=== PATIENT | male | born 1965 | race Caucasian/White ===

== ENCOUNTER → 2022-11-23 | Outpatient (CLI) | payer BC, SELFPAY ==
[2022-11-23 12:51] LABS: Erythrocyte Sedimentation Rate 4 mm/hr (0-20)
[2022-11-23 12:58] LABS: Absolute Lymphocyte Count 1.38 X10^3/uL (0.83-4.51); Absolute Neutrophil Count 3.4 X10^3/uL (2.0-7.7); Basophil# 0.05 X10^3/uL; Basophil% 0.9 % (0-1); Eosinophil# 0.13 X10^3/uL; Eosinophils% 2.4 % (0-5); Hematocrit 45.2 % (40-54); Lymphocyte # 1.38 X10^3/ul (0.83-4.51); Mean Corp Hgb Conc 33.2 g/dL (32-36); Mean Corpuscular Hgb 27.3 pg (27.0-32.0); Mean Corpuscular Volume 82.2 fL (80-94); Mean Platelet Vol. 9.2 fl (6.2-12.0); Monocyte# 0.56 X10^3/uL; Monocyte% 10.1 % (0-10); NRBC Flagged by Analyzer 0 % (0-5); Neutrophil # 3.37 X10^3/uL (2.7-7.7); Neutrophil % 61.1 % (47-70); Platelet Count 170 K/mm3 (150-450); RBC Distribution Width CV 12.2 % (11.6-14.6); RBC Distribution Width SD 37.1 fl (35.1-43.9); White Blood Count 5.5 K/mm3 (4.4-11.0)
[2022-11-23 13:45] LABS: Hepatitis B Surface Antibody Non-Reactive; Hepatitis B Surface Antigen Non-Reactive (Nonreactive); Hepatitis C Antibody Non-Reactive (Nonreactive)
[2022-11-23 14:24] LABS: ALB/GLOB Ratio 0.9 RATIO (0.9-2.4); AST(SGOT) 13 U/L (15-37); Alanine Aminotransfer ALT/SGPT 34 U/L (16-61); Albumin, Serum 3.5 g/dL (3.2-5.0); Alkaline Phosphatase 69 U/L (45-117); Anion Gap 5 (5-15); BUN 20 mg/dL (7-18); BUN/Creat Ratio 19.8 RATIO (10-20); CRP < 2.90 mg/L (0.0-3.0); Calcium,Total 8.5 mg/dL (8.5-10.1); Chloride 107 mmol/L (98-107); Creatinine, Serum 1.01 mg/dL (0.70-1.30); EST Glomerular Filtration Rate 81 mL/min (>60); Est Glom Filt Rate - Afr Amer 98 mL/min (>60); Glucose 105 mg/dL (74-106); Potassium 4.4 mmol/L (3.5-5.1); Protein, Total 7.5 g/dL (6.4-8.2); Rheumatoid Factor < 10.0 IU/mL (<15); Sodium Level 137 mmol/L (136-145)
[2022-11-24 12:09] LABS: ANTINUCLEAR ANTIBODIES DIRECT Positive (Negative); CCP IgG Antibodies 5 units (0-19)
== END | disposition home or self-care (01) ==
PROVIDERS: PCP Internal Medicine; Referring Provider Internal Medicine Rheumatology; Visit Provider Internal Medicine Rheumatology
DX: M06.4 Inflammatory polyarthropathy (principal); I10 Essential (primary) hypertension; E78.5 Hyperlipidemia, unspecified; I25.10 Atherosclerotic heart disease of native coronary artery without angina pectoris; G47.33 Obstructive sleep apnea (adult) (pediatric); G47.26 Circadian rhythm sleep disorder, shift work type
CPT/HCPCS: 36415; 80053; 85025; 85652; 86038; 86140; 86200; 86431; 86706; 86803; 87340

== ENCOUNTER → 2022-12-06 | Outpatient (CLI) | payer BC, SELFPAY ==
[2022-12-06 15:51] LABS: EXAGEN MAILED SPECIMEN
[2022-12-06 17:36] LABS: Color, Urine Yellow (Yellow); Glucose, Dipstick Normal (Normal); Ketone-Dipstick Negative (Negative); Leukocyte Esterase-Dipstick Negative /ul (Negative); Nitrite-Dipstick Negative (Negative); Occult Blood-Urine Negative /ul (Negative); Protein-Dipstick Negative (Negative); Specific Gravity, Urine 1.015 (1.002-1.030); Urine Bilirubin Dipstick Negative (Negative); Urine Clarity Clear (Clear); Urine Urobilinogen 1 mg/dl (Normal); Urine pH 6.5 (5.0 - 8.0)
[2022-12-06 17:55] LABS: International Normalized Ratio 1.2; Partial Thromboplast Time 29.8 Seconds (24.1-36.2); Prothrombin Time (Protime)PT. 15.1 SECONDS (11.7-14.9)
[2022-12-06 17:56] LABS: Protein, Urine (Random) 8.8 mg/dL (<11.9); Protein:Creat Ratio 60 mg/g CRE (0-200)
[2022-12-09 19:07] LABS: Dilute Prothrombin Time (dPT) 41.2 sec (0.0-47.6); Dilute Russell Viper Venom 48.3 sec (0.0-47.0); Hexagonal Phase Phospholipid 4 sec (0-11); Interpretation Comment: (.); PTT-LA 41.3 sec (0.0-43.5); Thrombin Time 22.3 sec (0.0-23.0); dPT Confirm Ratio 1.02 Ratio (0.00-1.34)
== END | disposition home or self-care (01) ==
PROVIDERS: PCP Internal Medicine; Referring Provider Internal Medicine Rheumatology; Visit Provider Internal Medicine Rheumatology
DX: R76.8 Other specified abnormal immunological findings in serum (principal); M06.4 Inflammatory polyarthropathy; I10 Essential (primary) hypertension; E78.5 Hyperlipidemia, unspecified; I25.10 Atherosclerotic heart disease of native coronary artery without angina pectoris
CPT/HCPCS: 36415; 81002; 82570; 84156; 85598; 85610; 85730

== ENCOUNTER → 2023-02-24 | Outpatient (CLI) | payer BC, SELFPAY ==
--- OUTSIDE RECORDS SUMMARY | 2023-02-24 16:31 | XMS RPT_ITS | CCD ---
Author Name Unknown Address [address] [place] [address] Organization [facility] Care Team Providers Care Director Of Resource Development Name Role Phone LEWIS OLIVERA MD Primary Care Physician ( [phone] LEWIS OLIVERA MD Attending LEWIS Flor MD Primary Care LEWIS Flor MD Attending LEWIS Flor MD Primary Care Timmy Leary MD, KELIN Attending LEWIS Hsieh MD Primary Care LEWIS Flor MD Attending LEWIS Flor MD Primary Care UnavailLEWIS Jansen MD Attending LEWIS Flor MD Primary Care Unavailab Sapphire MENEZES, KELIN Attending LEWIS Hsieh MD Primary Care Unavailab Sapphire MENEZES, KELIN Admitting Wilman NICHOLE MD, RONNIE Consulting Wilman DENNIS MD, KELIN Consulting LEWIS Hsieh MD Attending LEWIS Flor MD Primary Care LEWSI Flor MD Attending LEWIS Flor MD Primary Care Unavailab granados Allergies Allergy Classification Reported Allergen(s) Allergy Type Date of Onset Reaction(s) Facility (5 sources) Nitroglycerin; Translations: [nitroglycerin] Drug Allergy [facility] Medications Current Medications Medication Drug Class(es) Dates Sig (Normalized) Sig (Original) Allergy (Loratadine) 10 mg oral tablet (4 sources) Start: 08-28-2019 Allergy (Loratadine) 10 mg oral tablet Dose : 10 mg = 1 tab(s), Oral, qDay, PRN as needed for allergy symptoms Start Date: 08/28/19 Status: Ordered amLODIPine 10 mg oral tablet (3 sources) Dihydropyridine Calcium Channel Billy Start: 04-08-2022 amLODIPine 10 mg oral tablet Dose : 10 mg = 1 tab(s), Oral, qDay, # 90 tab(s), 3 Refill(s), Pharmacy: [facility], 188, cm, 04/08/22 13:06:00 EST, Height, kg, 04/08/22 13:06:00 EST, Dosing Weight Start Date: 04/08/22 Status: Ordered apixaban 5 mg oral tablet (3 sources) Factor Xa Inhibitor Start: 04-28-2022 Eliquis 5 mg oral tablet Dose : 5 mg = 1 tab(s), Oral, BID, # 180 tab(s), 3 Refill(s), Pharmacy: [id number], 188, cm, 04/08/22 13:06:00 EST, Height, 110 Start Date: 04/28/22 Status: Ordered aspirin 81 mg delayed release oral tablet (2 sources) Platelet Aggregation Inhibitor, Nonsteroidal Anti-inflammatory Drug Start: 03-20-2015 aspirin 81 mg oral delayed release tablet Dose : 81 mg = 1 tab(s), Oral, qDay Start Date: 03/20/15 Status: Ordered Problems Active Problems Problem Classification Problem Date Documented Da te Episodic/Chronic Abdominal pain (2 sources) Abdominal pain 11-03-2021 Episodic Asthma (5 sources) Asthma 08-23-2019 Chronic Cardiac dysrhythmias (3 sources) Atrial fibrillation 05-10-2022 Chronic Chronic obstructive pulmonary disease and bronchiectasis (1 source) Bronchitis; Translations: [Bronchitis, not specified as acute or chronic] Onset: 2 Episodic Coronary atherosclerosis and other heart disease (6 sources) Coronary arteriosclerosis in chilkat artery; Translations: [Coronary atherosclerosis] 04-16-2019 Chronic Disorders of lipid metabolism (5 sources) Hyperlipidemia 08-23-2019 Chronic Esophageal disorders (5 sources) Gastroesophageal reflux disease 08-23-2019 Chronic Essential hypertension (5 sources) Hypertensive disorder 03-04-2020 Chronic Headache; including migraine (5 sources) Migraine 04-16-2019 Chronic Heart valve disorders (5 sources) Mitral valve prolapse 08-23-2019 Chronic Hyperplasia of prostate (8 sources) Large prostate ; Translations: [Benign prostatic hyperplasia] 03-20-2015 Chronic Nonspecific chest pain (5 sources) Chest pain 04-16-2019 Episodic Other circulatory disease (2 sources) H/O: atrial fibrillation 06-14-2022 Episodic Other gastrointestinal disorders (5 sources) Irritable bowel syndrome 08-23-2019 Chronic Other lower respiratory disease (4 sources) Dyspnea 03-20-2015 Episodic Other lower respiratory disease (2 sources) Dyspnea on exertion 06-14-2022 Episodic Other non-traumatic joint disorders (6 sources) Hip pain 08-23-2019 Episodic Residual codes; unclassified (5 sources) Obstructive sleep apnea syndrome 08-23-2019 Chronic Residual codes; unclassified (5 sources) Increased body mass index 08-23-2019 Episodic Residual codes; unclassified (1 source) Diffuse pain 09-12-2022 Episodic Unclassified (5 sources) Patient encounter status 08-23-2019 Past or Other Problems Problem Classification Problem Date Documented Da te Episodic/Chronic Other lower respiratory disease (2 sources) Dyspnea, unspecified; Translations: [Dyspnea, unspecified] Onset: 06-13-2022 Episodic Results Test Name Value Interpretation Reference Range Facil ity Vital Signs Date Time Vital Sign Value Performing Clinician Faci lity 06-03-2022 17:20-0400 Diastolic Blood Pressure Non-Invasive 74 1 KELIN DENNIS MD [address] [place] [address] 06-03-2022 17:20-0400 Heart rate 80 /min KELIN DENNIS MD [facility] 06-03-2022 17:20-0400 Respiratory rate 16 /min KELIN DENNIS MD [facility] 06-03-2022 17:20-0400 Systolic Blood Pressure Non-Invasive 128 1 KELIN DENNIS MD [facility] 06-03-2022 16:20-0400 Diastolic Blood Pressure Non-Invasive 76 1 KELIN DENNIS MD [facility] 06-03-2022 16:20-0400 Heart rate 86 /min KELIN DENNIS MD [facility] 06-03-2022 16:20-0400 Respiratory rate 16 /min KELIN DENNIS MD [facility] 06-03-2022 16:20-0400 Systolic Blood Pressure Non-Invasive 130 1 KELIN DENNIS MD [address] [place] [address] 06-03-2022 15:15-0400 Diastolic Blood Pressure Non-Invasive 79 1 KELIN DENNIS MD [address] [place] [address] 06-03-2022 15:15-0400 Heart rate 80 /min KELIN DENNIS MD [address] [place] [address] 06-03-2022 15:15-0400 Respiratory rate 16 /min KELIN DNENIS MD [address] [place] [address] 06-03-2022 15:15-0400 Systolic Blood Pressure Non-Invasive 134 1 KELIN DENNIS MD [address] [place] [address] 06-03-2022 10:00-0400 Body temperature 97.16 [degF] KELIN DENNIS MD [address] [place] [address] 06-03-2022 09:50-0400 Respiratory Rate - Anes 0 br/min KELIN DENNIS MD [address] [place] [address] 06-03-2022 09:45-0400 Respiratory Rate - Anes 16 br/min KELIN DENNIS MD [address] [place] [address] 06-03-2022 09:40-0400 Respiratory Rate - Anes 9 br/min KELIN DENNIS MD [address] [place] [address] 06-03-2022 09:30-0400 Body temperature 96.21 [degF] KELIN DENNIS MD [address] [place] [address] 06-03-2022 09:25-0400 Body temperature 96.33 [degF] KELIN DENNIS MD [address] [place] [address] 06-03-2022 09:20-0400 Body temperature 96.75 [degF] KELIN DENNIS MD [address] [place] [address] 06-03-2022 06:28-0400 Blood Pressure Location KELIN DENNIS MD [address] [place] [address] 06-03-2022 06:28-0400 Blood Pressure Method KELIN DENNIS MD [facility] 06-03-2022 06:28-0400 Body height 185.9 cm KELIN DENNIS MD [facility] 06-03-2022 06:28-0400 Body temperature 97.88 [degF] KELIN DENNIS MD [facility] 06-03-2022 [id number] Body weight 107.9 kg KELIN DENNIS MD [facility] 06-03-2022 06:280400 Body weight 31.22 kg/m2 KELIN DENNIS MD [facility] 06-03-2022 06:28-0400 Heart rate 69 /min KELIN DENNIS MD [facility] 03-07-2021 15:26-0500 Body temperature 97.52 [degF] ALIYAH MOY MD [facility] 03-07-2021 15:26-0500 Diastolic blood pressure 106 mm[Hg] ALIYAH MOY MD [facility] 03-07-2021 15:26-0500 Heart rate 93 /min ALIYAH MOY MD [facility] 03-07-2021 15:26-0500 Respiratory rate 18 /min ALIYAH MOY MD [facility] 03-07-2021 15:26-0500 Systolic blood pressure 193 mm[Hg] ALIYAH MOY MD [facility] Encounters Encounter Date Encounter Type Care Provider Facility Start: 11-04-2022 End: 11-05-2022 ambulatory KELIN DENNIS MD Facility:A Start: 11-04-2022 End: 11-04-2022 Patient encounter procedure KELIN DENNIS MD [facility] Start: 09-12-2022 End: 09-13-2022 ambulatory LEWIS OLIVERA MD Facility:A Start: 08-10-2022 End: 08-11-2022 ambulatory LEWIS OLIVERA MD Facility:A Start: 08-10-2022 End: 08-10-2022 Patient encounter procedure LEWIS OLIVERA MD [facility] Start: 07-05-2022 ambulatory LEWIS OLIVERA MD F acility:B Start: 06-13-2022 End: 06-18-2022 ambulatory LEWIS OLIVERA MD Facility:A Start: 06-03-2022 End: 06-03-2022 ambulatory KELIN DENNIS MD Facility:A Start: 06-03-2022 End: 06-03-2022 Observation KELIN DENNIS MD [facility] Start: 11-22-2021 End: 11-23-2021 ambulatory LEWIS OLIVERA MD Facility:B Start: 11-02-2021 End: 11-02-2021 Patient encounter procedure IRAJ MYRICK PA-C [facility] Start: 03-07-2021 End: 03-07-2021 Emergency department patient visit ALIYAH MOY MD [facility] Procedures Date Procedure Procedure Detail Performing Clinician Start: 11-08-2021 Cardiac catheterization KELIN DENNIS MD Immunizations Immunization Date Immunization Notes Care Provider Fa cili 12-28-2020 SARS-CoV-2 (COVID-19 ) Ad26 vaccine, recombinant IRAJ MYRICK PA-C [facility] 10-27-2014 influenza virus vaccine, unspecified formulation IRAJ MYRICK PA-C [facility] 11-18-2013 influenza virus vaccine, unspecified formulation IRAJ MYRICK PA-C [facility] 08-20-2013 tetanus toxoid, redu maria de jesus diphtheria toxoid, and acellular pertussis vaccine, adsorbed IRAJ MYRICK PA-C [facility] 03-01-1996 hepatitis B vaccine, adult dosage IRAJ MYRICK PA-C [facility] 08-24-1995 hepatitis B vaccine, adult dosage IRAJ MYRICK PA-C [facility] 07-20-1995 hepatitis B vaccine, adult dosage IRAJ MYRICK PA-C [facility] Payers Date Payer Category Payer Unknown [id number] 1965 Unknown [id number] 2.16.8 [id number] 1965 Unknown [id number] 2.16.8 [id number] 1965 Unknown [id number] 2.16.8 [id number] 1965 Unknown [id number] 2.16.8 [id number] 1965 Unknown [id number] 2.16.8 [id number] 1965 Unknown [id number] 2.16.8 [id number] 1965 Unknown [id number] 2.16.8 [id number] 1965 Unknown [id number] 2.16.8 [id number] Social History Date Type Detail Facility Start: 06-22-2018 Never smoked t obacco (finding) [facility] Sex Assigned At Male [facility] Functional Status Date Assessment Result [facility] 06-03-2022 Functional Status Awake, Repositions self, Resting [facility] 06-03-2022 Functional Status [facility] 06-03-2022 Functional Status Maintained [facility] Mental Status Date Assessment Result [facility] 06-03-2022 Mental Status Orientation Orie nted x 4, Follows simple commands [facility] 06-03-2022 Mental Status [facility] 06-03-2022 Mental Status [facility] Clinical Notes 03-07-2021 to 11-04-2022 Note Date & Type Note Facility [facility] 04-28-2023 Hospital Discharge instructions Patient Education 06/03/2022 18:12:25 3-- EP Study/Ablation (11/2017)(CUSTOM) ELECTROPHYSIOLOGY STUDY/ABLATION Discharge Instructions DIET INSTRUCTIONS Resume diet as prior to procedure ACTIVITIES Do not drive FOR 24 HOURS No heavy lifting GREATER THAN 10 POUNDS or pushing or straining FOR 4 DAYS BATHING/SHOWERING May tub bathe in 4 days Do not sit in hot tub, whirlpool, or swim for 4 days May shower today WOUND CARE You may go home with a Band-Aid over your procedure site. Keep this Band-Aid on for the next 24 hours and then remove it leaving the site open to air. Some degree of bruising and tenderness is normal around the procedure site. It will take a while for any bruising to completely resolve. Keep your site clean and dry. You need to report the following to your mica splitter: ?Any draining or oozing from the site ?Any swelling at the site ?Any increased pain or tenderness at the site ?Any numbness in your leg where the procedure was done ?Any sign of infection WATCH FOR SIGNS OF INFECTION: Elevated temperature above 100.5 Redness or swelling Increased pain Foul odor or drainage. If you have any questions, please call your doctor at the number listed on your follow up instructions. Follow all instructions given to you by your physician. Document Released: 01/23/2006 Document Revised: 01/09/2013 Document Reviewed: 01/24/2014 ExitCare Patient Information 2015 [employer]. This information is not intended to replace advicegiven to you by your health care provider. Make sure you discuss any questions you have with your health care provider. Follow Up Care 05/12/2022 11:48:39 With:BRITTANY KENDALL MD Address: [address] [facility] [address] [place] [address]- When:06/13/2022 14:00:00 Comments:KEEP THIS PREVIUOSLY SCHEDULED APPOINTMENT. With:KELIN DENNIS MD Address: [address] [facility] [address] [place] [address]- [phone] When:09/01/2022 13:00:00 [facility] 04-28-2023 Discharge summary Date of Service 06/03/22 Discharge Diagnosis Atrial fibrillation --- here for ablation Hospital Course HPI: 56 yr old atrial fibrillation (eliquis; BB), CAD s/p PCI, HTN, LAURENT, GERD, referred by Dr Javier for further AFib management. 6% AFib burden. Very symptomatic from episodes and meds (fatigue). Course: He underwent atrial fibrillation ablation. He did well. No issues afterwards. Groin sites were stable. He maintained sinus and was ready for discharge. Wean off metoprolol over the next month. Continue anticoagulation. Allergies nitroglycerin Procedures atrial fibrillation ablation Consults No qualifying data available. Imaging Results and Diagnostics none Objective Vitals and Measurements T: 36.2 C (Skin) TMIN: 35.25 C TMAX: 36.6 C (Temporal Artery) HR: 80(Monitored) RR: 16 BP: 128/74 SpO2: 95% HT: 185.9 cm WT: 107.9 kg BMI: 31.22 BMI: 31.22 Weight Dosing Weight: 107.9 kg (06/03/22) General Appearance: Alert and oriented x3, no apparent distress Head: Normocephalic, atraumatic EENT: EOMI, PERRLA, mucous membranes moist Neck: Supple, no thyromegaly. Cardiac: rrr, no mrg. Lungs: Clear to auscultation bilaterally, no wheezing, rales, rhonchi. Abdomen: Nondistended, nontender, bowel sounds present. Musculoskeletal: No gross deformities. Extremities: no significant lower extremity edema, no calf tenderness, pedal pulses are present bilaterally Neurological: No focal deficits Skin: Warm, dry, intact Psychiatric: Mood congruent, cooperative Pending Labs and Studies none Code Status Code Status - Ordered -- 06/03/22 15:01:00 EDT, Full Code, Constant Order Admission Date 06/03/22 Discharge Date 06/03/22 Medications Unchanged amLODIPine (amLODIPine 10 mg oral tablet)1 tab(s) by mouth once a day. Refills: 3. apixaban (Eliquis 5 mg oral tablet)1 tab(s) by mouth two (2) times a day. Refills: 3. clopidogrel (Plavix 75 mg oral tablet)1 tab(s) by mouth once a day. Refills: 0. diphenhydrAMINE (Benadryl 25 mg oral capsule)1 cap by mouth once a day as needed for allergy symptoms. loratadine (Allergy (Loratadine) 10 mg oral tablet)1 tab(s) by mouth once a day as needed as neededfor allergy symptoms. Misc Medication multivitamin (Multiple Vitamins oral capsule)1 cap by mouth once a day. omega-3 polyunsaturated fatty acids (Fish Oil 1000 mg oral capsule)2 cap by mouth once a day. pantoprazole (pantoprazole 20 mg oral enteric coated tablet)1 tab(s) Oral daily, prn; as needed Heartburn. Refills: 3. rosuvastatin (rosuvastatin 20 mg oral capsule)1 cap by mouth once a day. Refills: 3. tamsulosin (tamsulosin 0.4 mg oral capsule)1 cap by mouth once a day (in the evening). Refills: 3. Discontinued metoprolol (Toprol-XL 100 mg oral tablet, extended release)1 tab(s) by mouth once a day. Refills: 3. WEAN OFF METOPROLOL. In TWO weeks, cut the dose in half, then stop it 1 week later. Follow Up Follow Up with KELIN DENNIS MD When 09/01/2022 01:00 PM EDT Where: [address] [facility] [address] [place] [address]- [phone] Follow Up with BRITTANY KENDALL MD When 06/13/2022 02:00 PM EDT Why: KEEP THIS PREVIUOSLY SCHEDULED APPOINTMENT. Where: [address] [facility] [address] [place] [address]- Follow Up Labs/Studies Discharge Labs No Follow-up Labs Discharge Studies No Follow-up Studies Discharge Diet No qualifying data available. Discharge Activity Discharge Activity - Ordered -- no heavy lifting for 4 days (nothing 25 lbs), 06/03/22 10:25:00 EDT Condition on Discharge stable Readmission Risk/Palliative Score No qualifying data available. Discharge Disposition home Information Provided To patient Digitally Signed by KELIN DENNIS MD on 06/03/2022 06:48 PM [id number] Summary of episode note Discharge Instructions Thank you for allowing [facility] to assist you with your healthcare needs. The following is importantdischarge information regarding your hospital visit. Your Care Team LEWIS OLIVERA MD What to do next Scheduled Follow-Up Appointments Appointment Type When With Where Contact InformationCV OV 06/13/2022 02:00 PM EDT [facility] OV Follow Up 08/15/2022 02:30 PM EDT LEWIS OLIVERA MD [facility] CV OV 09/01/2022 01:00 PM EDT [facility] Follow Up Appointments Follow Up with KELIN DENNIS MD When 09/01/2022 01:00 PM EDT Where: [address] [facility] [address] [place] [address]- [phone] Follow Up with BRITTANY KENDALL MD When 06/13/2022 02:00 PM EDT Why: KEEP THIS PREVIUOSLY SCHEDULED APPOINTMENT. Where: [address] [facility] [address] [place] [address]- The Following Activity and Diet Have Been Ordered for You Discharge Activity - Ordered -- no heavy lifting for 4 days (nothing 25 lbs), 06/03/22 10:25:00 EDT No qualifying data available. The Following Equipment Has Been Ordered for You Discharge Home Equipment Discharge Communication Order - Ordered -- Please take metoprolol for 2 more weeks, then reduce dose in half for 1 more week, then stop., 06/03/22 18:43:04 EDT Medications Please ask your primary doctor or pharmacist before taking any other medication not listed, including over the counter drugs, herbal medications, vitamins and or supplements as they may interact withyour home medications. What How Much When Instructions Last Dose Unchanged amLODIPine (amLODIPine 10 mg oral tablet) 1 tab(s) by mouth Once a day Unchanged apixaban (Eliquis 5 mg oral tablet) 1 tab(s) by mouth Two (2) times a day Unchanged clopidogrel (Plavix 75 mg oral tablet) 1 tab(s) by mouth Once a day Unchanged diphenhydrAMINE (Benadryl 25 mg oral capsule) 1 cap by mouth Once a day as needed for for allergy symptoms Unchanged loratadine (Allergy (Loratadine) 10 mg oral tablet) 1 tab(s) by mouth Once a day as needed for as needed for allergy symptoms Unchanged Misc Medication Unchanged multivitamin (Multiple Vitamins oral capsule) 1 cap by mouth Once a day Unchanged omega-3 polyunsaturated fatty acids (Fish Oil 1000 mg oral capsule) 2 cap by mouth Once a day Unchanged pantoprazole (pantoprazole 20 mg oral enteric coated tablet) See instructions 1 tab(s) Oral daily, prn Unchanged rosuvastatin (rosuvastatin 20 mg oral capsule) 1 cap by mouth Once a day Unchanged tamsulosin (tamsulosin 0.4 mg oral capsule) 1 cap by mouth Once a day (in the evening) What How Much When Comments Stop Taking metoprolol (Toprol-XL 100 mg oral tablet, extended release) 1 tab(s) by mouth Once a day Please take this list to your next doctor s visit. Bring all medications you take, including over the counter medications, herbals and other supplements with you to your doctor s visit. Patients and families are reminded to discard old lists and to update any records with all medication providers or retail pharmacies. Education Materials ELECTROPHYSIOLOGY STUDY/ABLATION Discharge Instructions DIET INSTRUCTIONS Resume diet as prior to procedure ACTIVITIES Do not drive FOR 24 HOURS No heavy lifting GREATER THAN 10 POUNDS or pushing or straining FOR 4 DAYS BATHING/SHOWERING May tub bathe in 4 days Do not sit in hot tub, whirlpool, or swim for 4 days May shower today WOUND CARE You may go home with a Band-Aid over your procedure site. Keep this Band-Aid on for the next 24 hours and then remove it leaving the site open to air. Some degree of bruising and tenderness is normal around the procedure site. It will take a while for any bruising to completely resolve. Keep your site clean and dry. You need to report the following to your mica splitter: ? Any draining or oozing from the site ? Any swelling at the site ? Any increased pain or tenderness at the site ? Any numbness in your leg where the procedure was done ? Any sign of infection WATCH FOR SIGNS OF INFECTION: Elevated temperature above 100.5 Redness or swelling Increased pain Foul odor or drainage. If you have any questions, please call your doctor at the number listed on your follow up instructions. Follow all instructions given to you by your physician. Document Released: 01/23/2006 Document Revised: 01/09/2013 Document Reviewed: 01/24/2014 ExitCare Patient Information 2015 [employer]. This information is not intended to replace advicegiven to you by your health care provider. Make sure you discuss any questions you have with your health care provider. Additional Information VACCINATE! IT SAVES LIVES! Members of the community who have not yet received the COVID-19 vaccine and would like to receive it can visit one of [facility] vaccine clinics. There are many vaccine clinic locations within the [facility]. For locations and available times, please visit [email or web address].[place].gov/. It is important to note that some COVID mobile vaccine clinics are held outdoors and may be canceled in rainy or stormy conditions. To learn more about pediatric vaccinations (ages 5-11), we invite you to visit the [facility] webpage. [email or web address]/[email or web address] learn more about the COVID-19 vaccine, we invite you to visit the CDC website for a list of frequently asked questions. https://www.cdc.gov/coronavirus/2019-ncov/vaccines/faq.html [facility] Patient Portal Access Instructions: Stay connected with your healthcare team and access your personal medical information anytime with the [facility] Patient Portal.If you would like a full copy of your medical records, please contact the [facility] Medical Records Department, Monday through Monday between 8a.m. and 4:30p.m. Please follow the directions below to access the portal: 1.Access the email account you provided upon registration to the [facility].2.Look for an invitation email from [facility].3.Open the email and access the invitation link: Accept Invitation to [facility].Fill in the required alfredo to create your account. Sign into [email or web address] with your username and password that you created in the above steps to stay up to date. You can then view a summary of results, a summary of your visits, and the ability to download your summaries to your computer or send the information securely to a physician. Remember that your healthcare information is confidential, so carefully consider who you will allow to register on the [facility] Patient Portal for access to your information. You can also access the [facility] Patient Portal on the [employer] jocelyne. Simply click on Health Records under [facility] and then click on the [facility] logo. HOW TO SAFELY DISPOSE OF PRESCRIPTION MEDICATIONS Please use one of the following methods to safely dispose of your unused medications. 1.Use a drug disposal kit: the drug disposal pouch allows you to safely discard your old and unuseddrugs. Ask your nurse to give you one when you are discharged.2.Visit a local take-back location: Many local pharmacies and police departments have programs that collect old and unwanted prescriptiondrugs. Call your local pharmacy or go to http://bit.FPSI/2C4Mz2o to find one close to you.3.Make use of household items: Use cat litter or old coffee grounds to dispose medications if other options arenot available. Mix your drugs with these household products, seal them in an airtight container andthrow it into the garbage. Call [facility]: [phone] to be sure your drugs can be disposed of in this way. Some medicines may require a different approach.4.Never flush your medications down the toilet. IF YOU HAVE BEEN PRESCRIBED AN OPIOID FOR PAIN If you have been prescribed an opioid (such as hydrocodone, oxycodone or morphine), it is critical to understand the possible side effects and risks of opioid pain medications. Even when taken as directed, opioids can have several side effects including: Tolerance, meaning you might need to take more of a medication for the same pain relief. Nausea, vomiting and/or constipation. Sleepiness, dizziness, dry mouth, confusion, depression or itching. Physical dependence, meaning you have withdrawal symptoms when a medication is stopped, can develop within a few days. KNOW YOUR RESPONSIBILITIES It is important to know exactly how much and how often to take the opioid pain medications you are prescribed. Never take opioids in higher amounts or more often than prescribed. Do not combine opioids with alcohol or other drugs that cause drowsiness, such as benzodiazepines, also known as benzos, including diazepam and alprazolam, muscle relaxants or sleep aids. Never sell or share prescription opioids. This is illegal. Store opioids in a secure place and out of reach of others (including children, family, friends and visitors). The last page of this document has been signed and retained as a CHART COPY. Signatures Patient Education Materials 3-- EP Study/Ablation (11/2017)(CUSTOM) Medication Leaflets My discharge plan and instructions have been reviewed and explained to me and I,CASIMIRO MILLS understand my current condition and have read and understand these discharge instructions. I have received a written copy of the plan/instructions. If I have questions, I am aware that I should contact my doctor. 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 History of Present Illness 56yoM with PMH atrial fibrillation (eliquis; BB both taken yesterday), CAD s/p PCI (in nov 2021, took plavix yesterday per instructions), HTN, LAURENT, GERD presenting for ablation. Denies current CP, SOB, fever, recent cough, cold or congestion; >4 METS, no GERD sx. He is symptomatic when episodes of afib occur. Health Status Allergies: Nonallergic Reactions (Selected) Severity Not Documented Nitroglycerin- No reactions were documented., Allergies (1) ActiveReaction nitroglycerinNone Documented Current medications: (Selected) Inpatient Medications Ordered NS 1,000 mL: 20 mL/hr, Intravenous lidocaine 1% preservative-free injectable solution: 2.5 mg, 0.25 mL, Intradermal, prep pharm Prescriptions Prescribed Eliquis 5 mg oral tablet: 5 mg, 1 tab(s), Oral, BID, 180 tab(s), 3 Refill(s) Plavix 75 mg oral tablet: 75 mg, 1 tab(s), Oral, qDay, 14 tab(s), 0 Refill(s) Toprol-XL 100 mg oral tablet, extended release: 100 mg, 1 tab(s), Oral, qDay, 90 tab(s), 3 Refill(s) amLODIPine 10 mg oral tablet: 10 mg, 1 tab(s), Oral, qDay, 90 tab(s), 3 Refill(s) pantoprazole 20 mg oral enteric coated tablet: See Instructions, 1 tab(s) Oral daily, prn, PRN: Heartburn, 90 tab(s), 3 Refill(s) rosuvastatin 20 mg oral capsule: 20 mg, 1 cap(s), Oral, qDay, 90 cap(s), 3 Refill(s) tamsulosin 0.4 mg oral capsule: 0.4 mg, 1 cap(s), Oral, qPM, 90 cap(s), 3 Refill(s) Documented Medications Documented Allergy (Loratadine) 10 mg oral tablet: 10 mg, 1 tab(s), Oral, qDay, PRN: as needed for allergy symptoms Benadryl 25 mg oral capsule: 25 mg, 1 cap(s), Oral, qDay, PRN: for allergy symptoms Fish Oil 1000 mg oral capsule: 2,000 mg, 2 cap(s), Oral, qDay Misc Medication: 0 Refill(s) Multiple Vitamins oral capsule: 1 cap(s), Oral, qDay, Medications (2) Active Scheduled: (1) lidocaine 1% (MPF) 2 mL vial pf 2.5 mg 0.25 mL, Intradermal, prep pharm Continuous: (1) NS (0.9% nacl) 1,000 mL 1,000 mL, Intravenous, 20 mL/hr PRN: (0) Problem list: Medical Abdominal pain / SNOMED CT 17416778 / Confirmed Asthma / SNOMED CT 310814646 / Confirmed Atrial fibrillation / SNOMED CT 48437248 / Confirmed BPH (benign prostatic hyperplasia) / SNOMED CT 589062965 / Confirmed CHEST PAIN / SNOMED CT 50001052 / Confirmed Chest Pain-unclear etiology / Complaint of Atherosclerotic heart disease / SNOMED CT 2353065770 / Confirmed Shortness of breath / SNOMED CT 781175559 / Confirmed Enlarged prostate / SNOMED CT 996041954 / Confirmed Gastroesophageal reflux disease / SNOMED CT 554231707 / Confirmed Hip pain / SNOMED CT 68628758 / Confirmed HISTORY OF RIGHT CORONARY ARTERY STENT PLACEMENT / SNOMED CT 3963388549 / Confirmed Hyperlipidemia / SNOMED CT 40150016 / Confirmed Hypertension / SNOMED CT 2695294243 / Confirmed Increased BMI / SNOMED CT 69311154 / Confirmed Irritable bowel syndrome / SNOMED CT 46980556 / Confirmed MIGRAINE / SNOMED CT 95186880 / Confirmed Mitral valve prolapse / SNOMED CT 4325823437 / Confirmed OBSTRUCTIVE SLEEP APNEA / SNOMED CT 067232305 / Confirmed Wellness examination / SNOMED CT 937891271 / Confirmed, Active Problems (24) Abdominal pain Asthma Atherosclerotic heart disease Atrial fibrillation BPH (benign prostatic hyperplasia) CAD (coronary artery disease) cardiac catherization CHEST PAIN Chest pain Chest Pain-unclear etiology Enlarged prostate Gastroesophageal reflux disease Hip pain HISTORY OF RIGHT CORONARY ARTERY STENT PLACEMENT Hypercholesterolemia Hyperlipidemia Hypertension Increased BMI Irritable bowel syndrome MIGRAINE Mitral valve prolapse OBSTRUCTIVE SLEEP APNEA Shortness of breath Wellness examination Histories Past Medical History: Active Enlarged prostate (639043201) Shortness of breath (198879892) Resolved Microcytosis (200714551): Resolved. Paroxysmal A-fib (975045852): Resolved. Procedure history: Cardiac catheterization ([id number]) on 11/08/2021 at 55 Years. Comments: 12/10/2021 9:54 Wendy Sorto RN 11/08/21 SUMMARY: 1. 1st lesion: Stent placement was performed. A 2.5 mm (D) x 28 mm (L), Synergy XD stent was used. The stent was advanced across the lesion and deployed with a single inflation and a maximum pressure of 14 osmar. 2. 2nd lesion: Stent placement was performed. A 3.5 mm (D) x 20 mm (L), Synergy XD stent was used. The stent was advanced across the lesion and deployed with a single inflation and a maximum pressure of 12 osmar. 3. Left ventricle: Systolic function is normal. The estimated ejection fraction is 55-60%. 4. LAD: Mid-vessel lesion: The diagnostic study demonstrated a discrete, 70% stenosis. The distal vessel supplies a large vascular territory. The lesion is a likely culprit for the patient's clinical presentation. The lesion presents an ACC/AHA type C high risk lesion for intervention. Stent placement was performed, with balloon angioplasty, resulting in an excellent angiographic appearance (see 2nd lesion). Following intervention, there is a residual stenosis with FERCHO grade 3 flow (brisk flow). 5. 2nd diagonal: Ostial lesion: The diagnostic study demonstrated a discrete, 80% stenosis. The distal vessel supplies a moderate-sized vascular territory. The lesion is a likely culprit for the patient's clinical presentation. The lesion presents an ACC/AHA type C high risk lesion for intervention. Stent placement was performed, with balloon angioplasty, resulting in an excellent angiographic appearance (see 1st lesion). Following intervention, there is a residual stenosis with FERCHO grade 3 flow (brisk flow). 6. Left circumflex: Mid-vessel lesion: There is a 50% stenosis. IMPRESSIONS: Successful bifurcation PCI of LAD and Diagonal with HARLAN and DK crush technique. RECOMMENDATIONS: Continue on ASA and Brillinta with high intensity statin therapy and beta blockersas tolerated. Continue with aggressive risk factor modification and antianginal medications as needed. 03/04/2020 8:54 Tori Jiang LPN SUMMARY: Left ventricle: Systolic function is normal. The estimated ejection fraction is 55 60%. Wall motion is normal; there are no regional wall motion abnormalities. IMPRESSIONS: Mild coronary artery disease as described. Patent prior stent in RCA Normal LV systolic function with LVEF 55 60% Stress testing using pharmacologic-induced stress ([id number]) on 08/28/2019 at 53 Years. Comments: 03/04/2020 8:53 Tori Jiang LPN IMPRESSION: 1. No evidence for Lexiscan-induced reversible myocardial ischemia or infarction. 2. Normal LEFT ventricular wall motion and LEFT ventricular ejection fraction calculated to be 62%. 3. On comparison to prior study in 2012 no new changes . PTCA - Percutaneous transluminal coronary angioplasty ([id number]) on 10/27/2011 at 45 Years. Comments: 03/04/2020 9:05 Tori Jiang LPN (10/27/11) 3.5 X 16 Promus Element stent to the RCA Pilonidal cyst ([id number]). Social History Social & Psychosocial Habits Alcohol 03/29/2017Risk Assessment: Denies Alcohol Use 08/21/2018 Use: Never Employment/School 05/12/2022 Status: Employed Substance Abuse 03/29/2017Risk Assessment: Denies Substance Abuse 04/19/2019 Use: Never Tobacco 06/22/2018 Tobacco Use: Never (less than 100 in l 2Risk Assessment: No Risk Home/Environment 05/12/2022 Marital Status of Patient if Patient Independent Adult: Nutrition/Health 05/12/2022 Caffeine intake amount: none . Physical Examination Vital Signs(last 24 hrs) Last Charted Resp Rate 20 br/min (JUN 03 06:28) SBPH 151mmHg (JUN 03 06:28) DBPH 91mmHg (JUN 03 06:28) BMI31.22 (JUN 03 06:) Measurements from flowsheet : Measurements 06/03/2022 6:28 EDT Height 185.9 cm Height in inches 73.2 inch(es) Admission Weight 107.9 kg Weight Lbs 237.4 lb Weight Method Actual [place] Body Weight 80.33 kg Body Mass Index 31.22 kg/m2 Body Mass Index 31.22 kg/m2 Admission Body Mass Index 31.22 m2 General: Alert and oriented, No acute distress. Airway: Normal mouth, No damage to dentition, Normal neck range of motion. Mallampati classification: III (soft palate, base of uvula visible). Dentition Evaluation: Intact. Neck: Supple. Respiratory: Lungs are clear to auscultation, Respirations are non-labored. Cardiovascular: Normal rate, Regular rhythm. Heart Sounds: Normal. Neurologic: Alert, Oriented. Review / Management Results review: No qualifying data available . Documentation reviewed: Current records. Assessment and Plan [place] Society of Anesthesiologists (ASA) physical status classification: Class III. Anesthetic Preoperative Plan Premedication: intravenous. Anesthetic technique: General. Induction: intravenously. Maintenance airway: Oral endotracheal tube. Special Monitoring: Arterial line. Postoperative pain management: Per surgeon. Risks discussed: nausea, vomiting, headache, sore throat, dental injury, hypotension, allergic reaction, serious complications. Informed consent: signed by patient. Notes: Late entry due to participation in pt care. Pt seen and evaluated prior to performing anesthetic. Discussed and agree upon plan. . Digitally Signed by RONNIE NICHOLE MD on 06/03/2022 08:26 AM [id number] Discharge [facility] Patient Education 03/07/2021 15:31:20 Bronchitis, Antibiotic Treatment (Adult) Bronchitis, Antibiotic Treatment (Adult) Bronchitis is an infection of the air passages (bronchial tubes) in your lungs. It often occurs when you have a cold. This illness is contagious during the first few days and is spread through the air by coughing and sneezing, or by direct contact (touching the sick person and then touching your own eyes, nose, or mouth). Symptoms of bronchitis include cough with mucus (phlegm) and low-grade fever. Bronchitis usually lasts 7 to 14 days. Mild cases can be treated with simple home remedies. More severe infection is treated with an antibiotic. Home care Follow these guidelines when caring for yourself at home: If your symptoms are severe, rest at home for the first 2 to 3 days. When you go back to your usualactivities, don't let yourself get too tired. Don't smoke. Also stay away from secondhand smoke. You may use nuui-keb-yzfjedc medicines to control fever or pain, unless another medicine was prescribed. If you have chronic liver or kidney disease or have ever had a stomach ulcer or gastrointestinal bleeding, talk with your healthcare provider before using these medicines. Also talk to your provider if you are taking medicine to prevent blood clots. Aspirin should never be given to anyone younger than 18 who is ill with a viral infection or fever. It may cause severe liver or brain damage. Your appetite may be low, so a light diet is fine. Stay well hydrated by drinking 6 to 8 glasses offluids per day. This includes water, soft drinks, sports drinks, juices, tea, or soup. Extra fluidswill help loosen mucus in your nose and lungs. Gocl-ufk-nhtrhmr cough, cold, and sore-throat medicines will not shorten the length of the illness,but they may be helpful to reduce your symptoms. Don't use decongestants if you have high blood pressure. Finish all antibiotic medicine. Do this even if you are feeling better after only a few days. Follow-up care Follow up with your healthcare provider, or as advised. If you had an X-ray or ECG (electrocardiogram), a specialist will review it. You will be told of any new test results that may affect your care. If you are age 65 or older, if you smoke, or if you have a chronic lung disease or condition that affects your immune system, ask your healthcare provider about getting a pneumococcal vaccine and a yearly flu shot (influenza vaccine). When to seek medical advice Call your healthcare provider right away if any of these occur: Fever of 100.4 F (38 C) or higher, or as directed by your healthcare provider Coughing up more sputum Weakness, drowsiness, headache, facial pain, ear pain, or a stiff neck Call 911 Call 911 if any of these occur. Coughing up blood Weakness, drowsiness, headache, or stiff neck that get worse Trouble breathing, wheezing, or pain with breathing 4522-4553 [employer]. [address] [place] [address], [place] [address]. All rights reserved. This information is not intended as a substitute for professional medical care. Always follow yourhealthcare professional's instructions. Follow Up Care 03/07/2021 15:22:40 With:LEWIS OLIVERA MD, Internal Medicine, [facility] Inpatient Coverage, Internal Medicine, [facility] Inpatient Coverage Address: [address] [place] [phone] When:5 to 7 days [facility] Evaluation + Plan note Future Appointments Appointment Date:10/21/2021 02:30:00 PM Scheduled Provider:LEWIS OLIVERA MD Location:[facility] Appointment Type:PC OV [facility] Evaluation + Plan note Future Appointments Appointment Date:11/08/2021 09:30:00 AM Scheduled Provider: Location:Heart Lab Appointment Type:CV Procedure - Heart Lab/Hybrid OR Appointment Date:12/13/2021 01:30:00 PM Scheduled Provider:IRAJ MYRICK PA-C Location:[facility] Appointment Type:CV OV Appointment Date:01/18/2022 03:30:00 PM Scheduled Provider:LEWIS OLIVERA MD Location:[facility] Appointment Type:PC OV Follow Up [facility] Evaluation + Plan note Future Appointments Appointment Date:06/13/2022 02:00:00 PM Scheduled Provider: Location:[facility] Appointment Type:CV OV Appointment Date:08/15/2022 02:30:00 PM Scheduled Provider:LEWIS OLIVERA MD Location:[facility] Appointment Type:PC OV Follow Up Appointment Date:09/01/2022 01:00:00 PM Scheduled Provider: Location:[facility] Appointment Type:CV OV Future Scheduled Tests Laboratory* Basic Metabolic Panel 08/15/22 * Hepatic Function Panel 11/03/21 * Complete Blood Count 08/15/22 * Lipid Profile 08/15/22 * Lipid Profile 04/17/22 * Complete Metabolic Panel 04/17/22 [facility] Evaluation + Plan note Future Appointments Appointment Date:09/01/2022 01:00:00 PM Scheduled Provider: Location:[facility] Appointment Type:CV OV Appointment Date:09/12/2022 02:00:00 PM Scheduled Provider:LEWIS OLIVERA MD Location:[facility] Appointment Type:PC OV Follow Up Future Scheduled Tests Laboratory* Basic Metabolic Panel 08/15/22 * Hepatic Function Panel 11/03/21 * Complete Blood Count 08/15/22 * Lipid Profile 08/15/22 * Lipid Profile 04/17/22 * Complete Metabolic Panel 04/17/22 [facility] Evaluation + Plan note Future Appointments Appointment Date:03/20/2023 02:30:00 PM Scheduled Provider:LEWIS OLIVERA MD Location:[facility] Appointment Type:PC OV Follow Up Appointment Date:08/24/2023 01:15:00 PM Scheduled Provider: [facility] Type[facility] OV Future Scheduled Tests Laboratory* Basic Metabolic Panel 08/15/22 * Complete Blood Count 08/15/22 * Lipid Profile 08/15/22 * Lipid Profile 04/17/22 * Complete Metabolic Panel 04/17/22 [facility] Hospital course Narrative No data available for this section [facility] Hospital Discharge instructions No data available for this section [facility] Note* KELIN DENNIS MD: SIGN, VERIFY Event Display: Ablation RF-CARTO - CV [facility] Progress note No data available for this section [facility] Summary Purpose Family History No Family History Records Found Advance Directives No Advanced Directives Records Found Additional Source Comments Care Team (unrecognized sect ion and content) Care Team Personnel Name: LEWIS OLIVERA MD Position: P4 Physician - Primary Care Med Service: Active Provider Member Role: Primary Care Physician Address: Address: [address] [place] [address] Name: BRITTANY KENDALL MD Position: P4 Physician - Cardiology Med Service: Active Provider Member Role: Direct Chill Caster Address: Address: [address] [facility] [address] [facility] [place] [address]- Care Team Related Persons Name: DEVIKA MILLS Address: Home [address], [place] [id number] Name: JOSÉ MILLS Address: [facility] Address: Home [address], [place] [id number] Name: ABDULLAHI MILLS Address: Home [address], [place] [id number] Name: SHRUTHI MILLS Address: Home [address], [place] [phone] Patient Care team informatio n (unrecognized section and content) Care Team Personnel Name: LEWIS OLIVERA MD Position: P4 Physician - Primary Care Member Role: Primary Care Physician Address: Address: [address] [place] [address] Name: BRITTANY KENDALL MD Position: P4 Physician - Cardiology Member Role: Direct Chill Caster Address: Address: [address] [place] [address] [address]- Care Team Related Persons Name: DEVIKA MILLS Address: Home [address], [place] [phone] [place] Address: Temporary [address], [place] [id number] Name: JOSÉ MILLS Address: [facility] Address: Home [address], [place] [phone] Name: ABDULLAHI MILLS Address: Home [address], [place] [id number] [place] Address: Temporary [address], [place] [phone] Name: SHRUTHI MILLS Address: Home [address], [place] [phone] Care Team Personnel Name: LEWIS OLIVERA MD Position: P4 Physician - Primary Care Member Role: Primary Care Physician Address: Address: [address] [place], [place] [address] Name: BRITTANY KENDALL MD Position: P4 Physician - Cardiology Member Role: Direct Chill Caster Address: Address: [address] [place] [address] [address]- Care Team Related Persons Name: DEVIKA MILLS Address: Home [address], [place] [phone] [place] Address: Temporary [address], [place] [id number] Name: JOSÉ MILLS Address: [facility] Address: Home [address], [place] [phone] [place] Name: ABDULLAHI MILLS Address: Home [address], [place] [phone] [place] Address: Temporary [address], [place] [phone] Name: SHRUTHI MILLS Address: Home [address], [place] [phone] Care Team Personnel Name: LEWIS OLIVERA MD Position: P4 Physician - Primary Care Member Role: Primary Care Physician Address: Address: [address] [place] [address] Name: KELIN DENNIS MD Position: P4 Physician - Cardiology Member Role: Child Care Attendant Address: Address: [address] [place], [place] [address] Name: BRITTANY KENDALL MD Position: P4 Physician - Cardiology Member Role: Direct Chill Caster Address: Address: [address] [place], [place] [address] Care Team Related Persons Name: DEVIKA MILLS Address: Home [address], [place] [phone] [place] Address: Temporary [address], [place] [phone] Name: JOSÉ MILLS Address: [facility] Address: Home [address], [place] [phone] [place] Name: ABDULLAHI MILLS Address: Home [address], [place] [phone] [place] Address: Temporary [address], [place] [phone] Name: SHRUTHI MILLS Address: Home [address], [place] [phone] [place] (unrecognized sect ion and content) No Status Records Found INFORMATION SOURCE (unrecogn ized section and content) FOR RECORDS PERTAINING TO PATIENTS WHO ARE OR HAVE BEEN ENROLLED IN A CHEMICAL DEPENDENCY/SUBSTANCEABUSE PROGRAM, SOME INFORMATION MAY BE OMITTED. This clinical summary was aggregated from multiple sources. Caution should be exercised in using it in the provision of clinical care. This summary normalizes information from multiple sources, and as a consequence, information in this document may materially change the coding, format and clinical context of patient data. In addition, data may be omitted in some cases. CLINICAL DECISIONS SHOULD BE BASED ON THE PRIMARY CLINICAL RECORDS. [facility] [facility]. provides no warranty or guarantee of the accuracy or completeness of information in this document.
[2023-02-24 17:29] LABS: Absolute Lymphocyte Count 1.29 X10^3/uL (0.83-4.51); Basophil# 0.05 X10^3/uL; Eosinophil# 0.12 X10^3/uL; Eosinophils% 2.4 % (0-5); Hemoglobin 14.7 g/dL (13.0-16.5); Lymphocyte # 1.29 X10^3/ul (0.83-4.51); Lymphocyte % 25.7 % (19-41); Mean Corp Hgb Conc 33.4 g/dL (32-36); Mean Corpuscular Hgb 27.5 pg (27.0-32.0); Mean Corpuscular Volume 82.2 fL (80-94); Mean Platelet Vol. 8.9 fl (6.2-12.0); Monocyte# 0.53 X10^3/uL; Monocyte% 10.6 % (0-10); NRBC Flagged by Analyzer 0 % (0-5); Neutrophil # 3.02 X10^3/uL (2.7-7.7); Neutrophil % 60.1 % (47-70); Platelet Count 151 K/mm3 (150-450); RBC Distribution Width CV 12.9 % (11.6-14.6); RBC Distribution Width SD 38.3 fl (35.1-43.9); Red Blood Count 5.35 M/mm3 (4.6-6.2)
[2023-02-24 17:55] LABS: AST(SGOT) 18 U/L (15-37); Alanine Aminotransfer ALT/SGPT 40 U/L (16-61); Albumin, Serum 3.7 g/dL (3.2-5.0); Alkaline Phosphatase 78 U/L (45-117); Anion Gap 3 (5-15); BUN 16 mg/dL (7-18); BUN/Creat Ratio 16.9 RATIO (10-20); Chloride 106 mmol/L (98-107); Creatinine, Serum 0.94 mg/dL (0.70-1.30); EST Glomerular Filtration Rate 87 mL/min (>60); Est Glom Filt Rate - Afr Amer 106 mL/min (>60); Globulin 3.8 g/dL (2.2-4.2); Glucose 100 mg/dL (74-106); Potassium 4.1 mmol/L (3.5-5.1); Protein, Total 7.5 g/dL (6.4-8.2); Sodium Level 137 mmol/L (136-145)
== END | disposition home or self-care (01) ==
LOC: MTLAB 16:23
PROVIDERS: PCP Internal Medicine; Referring Provider Internal Medicine Rheumatology; Visit Provider Internal Medicine Rheumatology
DX: M06.4 Inflammatory polyarthropathy (principal); M35.00 Sjogren syndrome, unspecified; Z79.899 Other long term (current) drug therapy; R76.8 Other specified abnormal immunological findings in serum
CPT/HCPCS: 36415; 80053; 85025

== ENCOUNTER → 2023-04-17 | Outpatient (CLI) | payer BC, SELFPAY ==
[2023-04-17 15:25] LABS: Absolute Lymphocyte Count 1.48 X10^3/uL (0.83-4.51); Basophil# 0.05 X10^3/uL; Basophil% 0.7 % (0-1); Eosinophil# 0.18 X10^3/uL; Eosinophils% 2.5 % (0-5); Hematocrit 46.7 % (40-54); Hemoglobin 15.4 g/dL (13.0-16.5); Lymphocyte # 1.48 X10^3/ul (0.83-4.51); Lymphocyte % 20.2 % (19-41); Mean Corpuscular Hgb 27.2 pg (27.0-32.0); Mean Corpuscular Volume 82.5 fL (80-94); Monocyte# 0.57 X10^3/uL; Monocyte% 7.8 % (0-10); NRBC Flagged by Analyzer 0 % (0-5); Neutrophil # 5.01 X10^3/uL (2.7-7.7); Neutrophil % 68.1 % (47-70); Platelet Count 185 K/mm3 (150-450); RBC Distribution Width CV 13.1 % (11.6-14.6); RBC Distribution Width SD 38.9 fl (35.1-43.9); Red Blood Count 5.66 M/mm3 (4.6-6.2); White Blood Count 7.3 K/mm3 (4.4-11.0)
[2023-04-17 15:41] LABS: AST(SGOT) 21 U/L (15-37); Alanine Aminotransfer ALT/SGPT 41 U/L (16-61); Albumin, Serum 3.7 g/dL (3.2-5.0); Alkaline Phosphatase 64 U/L (45-117); Anion Gap 6 (5-15); BUN 19 mg/dL (7-18); BUN/Creat Ratio 17.9 RATIO (10-20); Calcium,Total 8.8 mg/dL (8.5-10.1); Chloride 101 mmol/L (98-107); Creatinine, Serum 1.06 mg/dL (0.70-1.30); EST Glomerular Filtration Rate 76 mL/min (>60); Est Glom Filt Rate - Afr Amer 93 mL/min (>60); Globulin 3.8 g/dL (2.2-4.2); Glucose 128 mg/dL (74-106); Potassium 3.9 mmol/L (3.5-5.1); Protein, Total 7.5 g/dL (6.4-8.2); Sodium Level 136 mmol/L (136-145)
== END | disposition home or self-care (01) ==
PROVIDERS: PCP Internal Medicine; Referring Provider Internal Medicine Rheumatology; Visit Provider Internal Medicine Rheumatology
DX: M06.4 Inflammatory polyarthropathy (principal); M35.00 Sjogren syndrome, unspecified; Z79.899 Other long term (current) drug therapy; R76.8 Other specified abnormal immunological findings in serum
CPT/HCPCS: 36415; 80053; 85025

== ENCOUNTER → 2023-07-24 | Outpatient (CLI) | payer BC, SELFPAY ==
[2023-07-24 18:33] LABS: Absolute Lymphocyte Count 1.01 X10^3/uL (0.83-4.51); Absolute Neutrophil Count 3.1 X10^3/uL (2.0-7.7); Basophil# 0.03 X10^3/uL; Basophil% 0.7 % (0-1); Eosinophil# 0.11 X10^3/uL; Eosinophils% 2.4 % (0-5); Hematocrit 43.6 % (40-54); Hemoglobin 14.6 g/dL (13.0-16.5); Lymphocyte # 1.01 X10^3/ul (0.83-4.51); Lymphocyte % 21.9 % (19-41); Mean Corp Hgb Conc 33.5 g/dL (32-36); Mean Corpuscular Hgb 28.2 pg (27.0-32.0); Mean Corpuscular Volume 84.2 fL (80-94); Mean Platelet Vol. 9.2 fl (6.2-12.0); Monocyte# 0.35 X10^3/uL; Monocyte% 7.6 % (0-10); NRBC Flagged by Analyzer 0 % (0-5); Neutrophil % 67.2 % (47-70); Platelet Count 165 K/mm3 (150-450); RBC Distribution Width CV 12.7 % (11.6-14.6); Red Blood Count 5.18 M/mm3 (4.6-6.2); White Blood Count 4.6 K/mm3 (4.4-11.0)
[2023-07-24 19:06] LABS: AST(SGOT) 23 U/L (15-37); Alanine Aminotransfer ALT/SGPT 36 U/L (16-61); Albumin, Serum 3.5 g/dL (3.2-5.0); Alkaline Phosphatase 62 U/L (45-117); Anion Gap 7 (5-15); BUN 18 mg/dL (7-18); BUN/Creat Ratio 18.2 RATIO (10-20); Calcium,Total 8.6 mg/dL (8.5-10.1); Chloride 103 mmol/L (98-107); Creatinine, Serum 0.99 mg/dL (0.70-1.30); EST Glomerular Filtration Rate 83 mL/min (>60); Est Glom Filt Rate - Afr Amer 100 mL/min (>60); Globulin 3.6 g/dL (2.2-4.2); Glucose 115 mg/dL (74-106); Potassium 3.5 mmol/L (3.5-5.1); Protein, Total 7.1 g/dL (6.4-8.2); Sodium Level 136 mmol/L (136-145)
== END | disposition home or self-care (01) ==
LOC: MTLAB 13:54
PROVIDERS: PCP Internal Medicine; Referring Provider Internal Medicine Rheumatology; Visit Provider Internal Medicine Rheumatology
DX: M06.4 Inflammatory polyarthropathy (principal); R76.8 Other specified abnormal immunological findings in serum; M35.00 Sjogren syndrome, unspecified; Z79.899 Other long term (current) drug therapy
CPT/HCPCS: 36415; 80053; 85025

== ENCOUNTER → 2023-09-18 | Outpatient (CLI) | payer BC, SELFPAY ==
[2023-09-18 15:15] LABS: Absolute Lymphocyte Count 1.12 X10^3/uL (0.83-4.51); Absolute Neutrophil Count 4.5 X10^3/uL (2.0-7.7); Basophil# 0.04 X10^3/uL; Basophil% 0.6 % (0-1); Eosinophil# 0.12 X10^3/uL; Eosinophils% 1.9 % (0-5); Hematocrit 43.6 % (40-54); Hemoglobin 14.8 g/dL (13.0-16.5); Lymphocyte # 1.12 X10^3/ul (0.83-4.51); Lymphocyte % 17.7 % (19-41); Mean Corp Hgb Conc 33.9 g/dL (32-36); Mean Corpuscular Hgb 28.6 pg (27.0-32.0); Mean Corpuscular Volume 84.2 fL (80-94); Mean Platelet Vol. 8.9 fl (6.2-12.0); Monocyte# 0.51 X10^3/uL; Monocyte% 8.1 % (0-10); NRBC Flagged by Analyzer 0 % (0-5); Neutrophil # 4.49 X10^3/uL (2.7-7.7); Neutrophil % 71.2 % (47-70); Platelet Count 170 K/mm3 (150-450); RBC Distribution Width SD 39.6 fl (35.1-43.9); Red Blood Count 5.18 M/mm3 (4.6-6.2); White Blood Count 6.3 K/mm3 (4.4-11.0)
[2023-09-18 16:01] LABS: ALB/GLOB Ratio 0.9 RATIO (0.9-2.4); AST(SGOT) 21 U/L (15-37); Alanine Aminotransfer ALT/SGPT 37 U/L (16-61); Albumin, Serum 3.4 g/dL (3.2-5.0); Alkaline Phosphatase 57 U/L (45-117); Anion Gap 3 (5-15); BUN 16 mg/dL (7-18); Calcium,Total 8.6 mg/dL (8.5-10.1); Chloride 103 mmol/L (98-107); Creatinine, Serum 0.94 mg/dL (0.70-1.30); EST Glomerular Filtration Rate 88 mL/min (>60); Est Glom Filt Rate - Afr Amer 106 mL/min (>60); Globulin 3.7 g/dL (2.2-4.2); Glucose 110 mg/dL (74-106); Protein, Total 7.1 g/dL (6.4-8.2); Sodium Level 133 mmol/L (136-145)
== END | disposition home or self-care (01) ==
LOC: MTLAB 13:24
PROVIDERS: PCP Internal Medicine; Referring Provider Internal Medicine Rheumatology; Visit Provider Internal Medicine Rheumatology
DX: M06.4 Inflammatory polyarthropathy (principal); Z79.899 Other long term (current) drug therapy; R76.8 Other specified abnormal immunological findings in serum; M35.00 Sjogren syndrome, unspecified; K58.9 Irritable bowel syndrome, unspecified; I10 Essential (primary) hypertension; E78.5 Hyperlipidemia, unspecified; I25.10 Atherosclerotic heart disease of native coronary artery without angina pectoris; G47.33 Obstructive sleep apnea (adult) (pediatric); G47.26 Circadian rhythm sleep disorder, shift work type
CPT/HCPCS: 36415; 80053; 85025

== ENCOUNTER → 2023-12-11 | Outpatient (CLI) | payer BC, SELFPAY ==
[2023-12-11 18:32] LABS: Absolute Lymphocyte Count 1.09 X10^3/uL (0.83-4.51); Absolute Neutrophil Count 5.1 X10^3/uL (2.0-7.7); Basophil# 0.04 X10^3/uL; Basophil% 0.6 % (0-1); Eosinophil# 0.08 X10^3/uL; Eosinophils% 1.2 % (0-5); Hematocrit 43.1 % (40-54); Hemoglobin 14.7 g/dL (13.0-16.5); Lymphocyte # 1.09 X10^3/ul (0.83-4.51); Lymphocyte % 15.9 % (19-41); Mean Corp Hgb Conc 34.1 g/dL (32-36); Mean Corpuscular Hgb 28.4 pg (27.0-32.0); Mean Corpuscular Volume 83.4 fL (80-94); Mean Platelet Vol. 8.9 fl (6.2-12.0); Monocyte# 0.56 X10^3/uL; Monocyte% 8.2 % (0-10); NRBC Flagged by Analyzer 0 % (0-5); Neutrophil # 5.05 X10^3/uL (2.7-7.7); Neutrophil % 73.8 % (47-70); Platelet Count 175 K/mm3 (150-450); Red Blood Count 5.17 M/mm3 (4.6-6.2); White Blood Count 6.8 K/mm3 (4.4-11.0)
[2023-12-11 19:02] LABS: AST(SGOT) 19 U/L (15-37); Alanine Aminotransfer ALT/SGPT 38 U/L (16-61); Albumin, Serum 3.6 g/dL (3.2-5.0); Alkaline Phosphatase 60 U/L (45-117); Anion Gap 8 (5-15); BUN 20 mg/dL (7-18); BUN/Creat Ratio 14.9 RATIO (10-20); Calcium,Total 8.7 mg/dL (8.5-10.1); Chloride 100 mmol/L (98-107); Creatinine, Serum 1.34 mg/dL (0.70-1.30); EST Glomerular Filtration Rate 58 mL/min (>60); Est Glom Filt Rate - Afr Amer 70 mL/min (>60); Globulin 3.5 g/dL (2.2-4.2); Glucose 103 mg/dL (74-106); Potassium 3.3 mmol/L (3.5-5.1); Protein, Total 7.1 g/dL (6.4-8.2); Sodium Level 133 mmol/L (136-145)
== END | disposition home or self-care (01) ==
PROVIDERS: PCP Internal Medicine; Referring Provider Internal Medicine Rheumatology; Visit Provider Internal Medicine Rheumatology
DX: M06.4 Inflammatory polyarthropathy (principal); Z79.899 Other long term (current) drug therapy; R76.8 Other specified abnormal immunological findings in serum; M35.00 Sjogren syndrome, unspecified; K58.9 Irritable bowel syndrome, unspecified
CPT/HCPCS: 36415; 80053; 85025

== ENCOUNTER → 2024-03-01 | Outpatient (CLI) | payer BC, SELFPAY ==
[2024-03-01 10:40] LABS: Absolute Lymphocyte Count 1.42 X10^3/uL (0.83-4.51); Absolute Neutrophil Count 3.4 X10^3/uL (2.0-7.7); Basophil# 0.05 X10^3/uL; Basophil% 0.9 % (0-1); Eosinophil# 0.12 X10^3/uL; Eosinophils% 2.1 % (0-5); Hematocrit 43.3 % (40-54); Hemoglobin 14.6 g/dL (13.0-16.5); Lymphocyte # 1.42 X10^3/ul (0.83-4.51); Lymphocyte % 25.3 % (19-41); Mean Corp Hgb Conc 33.7 g/dL (32-36); Mean Corpuscular Hgb 28.3 pg (27.0-32.0); Mean Corpuscular Volume 84.1 fL (80-94); Mean Platelet Vol. 8.8 fl (6.2-12.0); Monocyte# 0.57 X10^3/uL; Monocyte% 10.2 % (0-10); NRBC Flagged by Analyzer 0 % (0-5); Neutrophil # 3.41 X10^3/uL (2.7-7.7); Neutrophil % 60.8 % (47-70); Platelet Count 176 K/mm3 (150-450); RBC Distribution Width CV 12.5 % (11.6-14.6); RBC Distribution Width SD 37.9 fl (35.1-43.9); Red Blood Count 5.15 M/mm3 (4.6-6.2); White Blood Count 5.6 K/mm3 (4.4-11.0)
[2024-03-01 11:33] LABS: ALB/GLOB Ratio 0.9 RATIO (0.9-2.4); AST(SGOT) 24 U/L (15-37); Alanine Aminotransfer ALT/SGPT 41 U/L (16-61); Albumin, Serum 3.5 g/dL (3.2-5.0); Alkaline Phosphatase 55 U/L (45-117); Anion Gap 5 (5-15); BUN 22 mg/dL (7-18); BUN/Creat Ratio 20.8 RATIO (10-20); Chloride 98 mmol/L (98-107); Creatinine, Serum 1.06 mg/dL (0.70-1.30); EST Glomerular Filtration Rate 76 mL/min (>60); Est Glom Filt Rate - Afr Amer 92 mL/min (>60); Glucose 156 mg/dL (74-106); Potassium 3.5 mmol/L (3.5-5.1); Protein, Total 7.5 g/dL (6.4-8.2); Sodium Level 134 mmol/L (136-145)
== END | disposition home or self-care (01) ==
LOC: MTLAB 07:30
PROVIDERS: PCP Internal Medicine; Referring Provider Internal Medicine Rheumatology; Visit Provider Internal Medicine Rheumatology
DX: M06.4 Inflammatory polyarthropathy (principal); Z79.899 Other long term (current) drug therapy; R76.8 Other specified abnormal immunological findings in serum
CPT/HCPCS: 36415; 80053; 85025

== ENCOUNTER → 2024-05-21 | Outpatient (CLI) | payer BC, SELFPAY ==
[2024-05-21 15:51] LABS: Absolute Lymphocyte Count 0.96 X10^3/uL (0.83-4.51); Absolute Neutrophil Count 2.5 X10^3/uL (2.0-7.7); Basophil# 0.02 X10^3/uL; Basophil% 0.5 % (0-1); Eosinophil# 0.07 X10^3/uL; Eosinophils% 1.8 % (0-5); Hematocrit 41.5 % (40-54); Hemoglobin 14.1 g/dL (13.0-16.5); Lymphocyte # 0.96 X10^3/ul (0.83-4.51); Lymphocyte % 24.5 % (19-41); Mean Corpuscular Hgb 28.3 pg (27.0-32.0); Mean Corpuscular Volume 83.3 fL (80-94); Mean Platelet Vol. 8.6 fl (6.2-12.0); Monocyte% 10.2 % (0-10); NRBC Flagged by Analyzer 0 % (0-5); Neutrophil # 2.46 X10^3/uL (2.7-7.7); Neutrophil % 62.7 % (47-70); Platelet Count 147 K/mm3 (150-450); RBC Distribution Width CV 13.4 % (11.6-14.6); RBC Distribution Width SD 40.5 fl (35.1-43.9); Red Blood Count 4.98 M/mm3 (4.6-6.2); White Blood Count 3.9 K/mm3 (4.4-11.0)
[2024-05-21 16:30] LABS: ALB/GLOB Ratio 1.4 RATIO (0.9-2.4); AST(SGOT) 22 U/L (<=37); Alanine Aminotransfer ALT/SGPT 30 U/L (<=46); Albumin, Serum 3.9 g/dL (3.5-5.0); Alkaline Phosphatase 49 U/L (40-129); Anion Gap 9 (5-15); BUN 22 mg/dL (4-19); BUN/Creat Ratio 20.8 RATIO (10-20); Carbon Dioxide 27.7 mmol/L (21.0-32.0); Chloride 100 mmol/L (98-108); Creatinine, Serum 1.06 mg/dL (0.70-1.20); EST Glomerular Filtration Rate 81 (>60); Globulin 2.7 g/dL (2.2-4.2); Glucose 78 mg/dL (70-99); Potassium 3.6 mmol/L (3.3-5.1); Protein, Total 6.5 g/dL (5.9-8.4); Sodium Level 137 mmol/L (133-145); Total Bilirubin 0.66 mg/dL (0.00-1.30)
== END | disposition home or self-care (01) ==
LOC: MTLAB 12:52
PROVIDERS: PCP Internal Medicine; Referring Provider Internal Medicine Rheumatology; Visit Provider Internal Medicine Rheumatology
DX: M06.4 Inflammatory polyarthropathy (principal); Z79.899 Other long term (current) drug therapy; R76.8 Other specified abnormal immunological findings in serum
CPT/HCPCS: 36415; 80053; 85025

== ENCOUNTER → 2024-08-16 | Outpatient (CLI) | payer BC, SELFPAY ==
[2024-08-16 15:17] LABS: Hematocrit 42.1 % (40-54); Hemoglobin 14.0 g/dL (13.0-16.5); Immature Granulocytes Count 0.040 X10^3/uL (0.0-0.0); Mean Corp Hgb Conc 33.3 g/dL (32-36); Mean Corpuscular Volume 85.2 fL (80-94); Mean Platelet Vol. 9.1 fl (6.2-12.0); NRBC Flagged by Analyzer 0 % (0-5); Platelet Count 166 K/mm3 (150-450); RBC Distribution Width CV 13.4 % (11.6-14.6); RBC Distribution Width SD 41.2 fl (35.1-43.9); Red Blood Count 4.94 M/mm3 (4.6-6.2); White Blood Count 4.8 K/mm3 (4.4-11.0)
[2024-08-16 16:04] LABS: AST(SGOT) 17 U/L (<=37); Alanine Aminotransfer ALT/SGPT 26 U/L (<=46); Albumin, Serum 3.9 g/dL (3.5-5.0); Alkaline Phosphatase 52 U/L (40-129); Anion Gap 9 (5-15); BUN 15 mg/dL (4-19); BUN/Creat Ratio 16.9 RATIO (10-20); Calcium,Total 8.6 mg/dL (7.6-11.0); Carbon Dioxide 23.3 mmol/L (21.0-32.0); Chloride 104 mmol/L (98-108); Globulin 2.6 g/dL (2.2-4.2); Glucose 84 mg/dL (70-99); Potassium 4.1 mmol/L (3.3-5.1)
== END | disposition home or self-care (01) ==
LOC: MTLAB 11:26
PROVIDERS: PCP Internal Medicine; Referring Provider Internal Medicine Rheumatology; Visit Provider Internal Medicine Rheumatology
DX: M06.4 Inflammatory polyarthropathy (principal); M25.511 Pain in right shoulder; R76.8 Other specified abnormal immunological findings in serum; M35.00 Sjogren syndrome, unspecified
CPT/HCPCS: 36415; 80053; 85025

== ENCOUNTER → 2024-11-15 | Outpatient (CLI) | payer BC, SELFPAY ==
[2024-11-15 10:30] LABS: Hematocrit 39.6 % (40-54); Hemoglobin 13.6 g/dL (13.0-16.5); Immature Granulocytes Count 0.030 X10^3/uL (0.0-0.0); Mean Corp Hgb Conc 34.3 g/dL (32-36); Mean Corpuscular Volume 84.3 fL (80-94); Mean Platelet Vol. 8.7 fl (6.2-12.0); NRBC Flagged by Analyzer 0 % (0-5); Platelet Count 173 K/mm3 (150-450); RBC Distribution Width CV 13.1 % (11.6-14.6); RBC Distribution Width SD 39.5 fl (35.1-43.9); Red Blood Count 4.70 M/mm3 (4.6-6.2); White Blood Count 5.5 K/mm3 (4.4-11.0)
[2024-11-15 10:49] LABS: AST(SGOT) 18 U/L (<=37); Alanine Aminotransfer ALT/SGPT 26 U/L (<=46); Albumin, Serum 4.2 g/dL (3.5-5.0); Alkaline Phosphatase 54 U/L (40-129); Anion Gap 9 (5-15); BUN 21 mg/dL (4-19); BUN/Creat Ratio 22.7 RATIO (10-20); Calcium,Total 9.1 mg/dL (7.6-11.0); Carbon Dioxide 25.4 mmol/L (21.0-32.0); Chloride 103 mmol/L (98-108); Globulin 2.7 g/dL (2.2-4.2); Glucose 94 mg/dL (70-99); Potassium 4.3 mmol/L (3.3-5.1)
== END | disposition home or self-care (01) ==
LOC: MTLAB 07:26
PROVIDERS: PCP Internal Medicine; Referring Provider Internal Medicine Rheumatology; Visit Provider Internal Medicine Rheumatology
DX: M06.4 Inflammatory polyarthropathy (principal); M25.511 Pain in right shoulder; R76.89 Other specified abnormal immunological findings in serum; M35.00 Sjogren syndrome, unspecified
CPT/HCPCS: 36415; 80053; 85025